=== PATIENT | male | born 1950 | race Caucasian/White ===

== ENCOUNTER 2023-05-12 11:11 | Emergency (ER) | payer MEDICARE, MEDICAID ==
[~2023-05-12] VITALS: Ht 172.7 cm; Wt 58.2 kg
[~2023-05-12 11:11] MED LIST: ALBU18HF2 INH; AMLO2.5T2 PO
[2023-05-12 11:14] VITALS: BP 180/70; PULSE 69; RESP 16; TEMP 98; O2SAT 97
[2023-05-12] MEDS ORDERED: LIDOcaine 1% W/epiNEPHrine 1:100,000 20ml vial SQ ONE (14:00)
[2023-05-12] MEDS ORDERED: TETanus/Pertussis (Acell)/Diphther VAC/PF (Tdap-Adult) 0.5ml syringe IMVAC ONE (14:35)
== END 2023-05-12 14:53 | disposition home or self-care (01) ==
LOC: ER 11:12
DX: S61.512A Laceration without foreign body of left wrist, initial encounter (principal); W45.8XXA Other foreign body or object entering through skin, initial encounter; Y93.89 Activity, other specified; Y92.89 Other specified places as the place of occurrence of the external cause; Y99.8 Other external cause status
CPT/HCPCS: 12001; 90471; 90715; 99283; J7030; A6449

== ENCOUNTER 2023-05-22 08:50 | Emergency (ER) | payer MEDICARE, MEDICAID ==
[~2023-05-22] VITALS: Ht 172.7 cm; Wt 72.7 kg
[2023-05-22 09:07] VITALS: BP 153/83; PULSE 78; RESP 18; TEMP 98.5; O2SAT 97
[2023-05-22] MEDS ORDERED: albuterol 2.5 MG/3 ML nebule NEB PRN (11:05)
[2023-05-23] MEDS ORDERED: amLODIPine 2.5mg tablet PO SCH (08:00)
== END 2023-05-22 11:19 | disposition home or self-care (01) ==
LOC: ER 08:51
DX: S61.511D Laceration without foreign body of right wrist, subsequent encounter (principal); Z79.899 Other long term (current) drug therapy; X58.XXXD Exposure to other specified factors, subsequent encounter
CPT/HCPCS: 99281